=== PATIENT | male | born 1975 | race Caucasian/White ===

== ENCOUNTER 2023-01-10 06:58 | Day surgery (SDC) | payer BC ==
[2023-01-07 13:36] LABS: Potassium 3.9 mEq/L (3.5-5.1)
--- NOTE | 2023-01-08 16:40 | EKG ---
Test Date: 2023-01-07 Test Time: 12:42:23 [employer] Supervisor: ESTEVAN MEASUREMENT RESULTS: Intervals: Rate: 77 ND: 142 QRSD: 94 QT: 380 QTc: 430 [place]: P: 15 ND: 142 QRS: 8 T: 63 INTERPRETIVE STATEMENTS: Normal sinus rhythm Low voltage QRS Borderline ECG No previous ECG available for comparison Electronically Signed On 01-08-23 16:38:24 CDT by Sebastien Magaña
[2023-01-10] MEDS: Ringers Lactate 1,000 ML IV ONE ×2 (07:24→08:36)
[2023-01-10] MEDS ORDERED: propofoL 200 MG/20 ML VIAL IV ONE ×2 (08:40)
[2023-01-10] MEDS ORDERED: LIDOCAINE 1% MPF 5 ML VIAL ONE (08:41)
[2023-01-10 11:43] VITALS: BP 116/73; TEMP 98; O2SAT 94
== END 2023-01-10 09:45 | disposition home or self-care (01) ==
LOC: OR 06:58
PROVIDERS: ATTEND Surgery
PROC: 0DBN8ZX Excision of Sigmoid Colon, Via Natural or Artificial Opening Endoscopic, Diagnostic (ICD-10-PCS; 2023-01-10)
PROC: 0DBM8ZX Excision of Descending Colon, Via Natural or Artificial Opening Endoscopic, Diagnostic (ICD-10-PCS; principal; 2023-01-10 08:45)
DX: Z12.11 Encounter for screening for malignant neoplasm of colon (principal); K64.8 Other hemorrhoids; D12.4 Benign neoplasm of descending colon; K63.5 Polyp of colon; F41.9 Anxiety disorder, unspecified
CPT/HCPCS: 93005; 80048; 36415; 88305; 45380; J2704 ×2; J2001; J7120; 88304